=== PATIENT | female | born 1975 | race Caucasian/White ===

== ENCOUNTER 2024-11-24 11:01 | Emergency (ER) | payer SELFPAY ==
[2024-11-24 11:11] VITALS: RESP 18; BMI 21.2
[2024-11-24] MEDS ORDERED: valACYclovir HCL 500 MG TABLET (FP) ONE (11:55)
[2024-11-24] MEDS ORDERED: predniSONE 20 MG TABLET (UD) ONE (11:55)
[2024-11-24] MEDS: predniSONE 20 MG TABLET (UD) PO ONE (12:00)
[2024-11-24] MEDS: valACYclovir HCL 500 MG TABLET (FP) PO ONE (12:00)
[2024-11-24 12:23] VITALS: BP 117/85; PULSE 100; TEMP 98
[2024-11-24 13:06] LABS: ABSOLUTE IMMATURE GRANULOCYTES 0.02 x10^3/uL (0.0-0.031); BASOPHILS # 0.02 x10^3/uL (0.01-0.08); EOSINOPHIL % 1.2 % (0.7-5.8); EOSINOPHILS # 0.07 x10^3/uL (0.04-0.36); HEMATOCRIT 45.1 % (34.1-44.9); HEMOGLOBIN 15.1 g/dL (11.2-15.7); MCHC 33.5 g/dl (32.2-35.5); MEAN CELL VOLUME 87.2 fl (79.4-94.8); MEAN PLT VOLUME 9.5 fl (9.4-12.3); MONOCYTE # 0.32 x10^3/uL (0.24-0.86); MONOCYTE % 5.4 % (4.7-12.5); PLATELET COUNT # 329 x10^3/uL (182-369); RDW 12.5 % (12.2-17.1)
[2024-11-24 13:08] LABS: POTASSIUM 3.8 mmol/L (3.5-5.1)
[2024-11-24 13:13] LABS: ALBUMIN 4.3 g/dl (3.4-5.0); BLOOD UREA NITROGEN 9.4 mg/dL (7-18); CALCIUM 9.7 mg/dL (8.5-10.1)
[2024-11-24 13:16] LABS: CREATININE 0.7 mg/dL (0.55-1.3)
[2024-11-24 13:18] LABS: BILIRUBIN,TOTAL 0.6 mg/dL (0.2-1); TOT PROT 7.5 g/dl (6.4-8.2)
== END 2024-11-24 13:37 | disposition home or self-care (01) ==
LOC: JER 11:01
DX: G51.0 Bell's palsy (principal); H92.01 Otalgia, right ear
CPT/HCPCS: 36415; 80053; 84703; 85025; 86618; 93005; 93010; 99284-25